=== PATIENT | female | born 1985 | race Caucasian/White ===

== ENCOUNTER → 2019-04-09 | Outpatient (CLI) | payer OTHER | END | disposition home or self-care (01) | LOC: LAB EV 12:01 → LAB SHORT 12:01 | DX: J02.9 Acute pharyngitis, unspecified (principal) | CPT/HCPCS: 87081 ==

== ENCOUNTER 2019-09-12 08:02 | Day surgery (SDC) | payer OTHER ==
[~2019-09-12] VITALS: Ht 160 cm; Wt 104.3 kg
[2019-09-12] MEDS ORDERED: DULO60 PO (08:26)
[2019-09-12] MEDS ORDERED: Norflex100 MG PO (08:27)
[2019-09-12] MEDS ORDERED: DIVA500EC PO (08:27)
[2019-09-12] MEDS ORDERED: AMIT10 PO (08:28)
--- NOTE | 2019-09-12 08:52 | NUR ---
Ambulatory in Day Surgery. Surgical site prepped with 2% Chlorhexidine cloth wipe. History, Chart, Medications and Allergies reviewed before start of procedure. Lungs clear T/O to Auscultation. Patient confirms NPO status and agrees with scheduled surgery. Pre-Op teaching done. Pt verbalizes understanding. Patient reports completing Chlorhexadine shower X2 prior to admission to hospital.
--- NOTE | 2019-09-12 09:57 | NUR ---
09/12/19 0957 Renato Glover [place] CATH PLACED PER DR. MITCHELL AT BEGINING OF PROCEDURE.
--- NOTE | 2019-09-12 12:55 | NUR ---
POST OP S/P LAVH. POST OP VSS AND IN PROGRESS. LAP SITES TO ABD ARE CDI. KPAD TO ABD FOR COMFORT. PT REPORTS ABD PAIN OF 3/10 AND DENIES NEED FOR PAIN MEDICATIONS. SLOWLY MANUELA CLEAR LIQS. IVF INFUSING PER ORDERS. [place] PATENT AND DRAINING. ARMAND PAD WITH SCANT VAGINAL BLEEDING. ENCOURAGING TO DEEP BREATHE. ORIENTED TO CALL LIGHT. CALL LIGHT WITHIN REACH.
--- NOTE | 2019-09-12 16:43 | NUR ---
SHIFT SUMMARY NO ACUTE CHANGES POST OP. PT DID GET NAUSEATED X1 AFTER SHE REPORTS EATING TOO FAST AND AFTER GETTING UP IN CHAIR. ZOFRAN GIVEN PER ORDERS AND PT DENIES NAUSEA SINCE. REG DIET FOR DINNER--ENCOURAGED PT TO EAT SLOW. IVF INFUSING PER ORDERS. KPAD TO ABD FOR COMFORT. 2 OXICODONE + TYLENOL + TORADOL FOR PAIN. SCANT VAGINAL DRAINAGE ON ARMAND PAD. LAP SITES TO ABD ARE CDI. [place] PATENT WITH CLEAR YELLOW URINE. PT USES CALL LIGHT APPROPRIATELY.
[2019-09-13 04:26] LABS: BASOPHILS ABSOLUTE AUTO 0.02 K/mm3 (0.00-0.23); BASOPHILS PERCENT AUTO 0 % (0-2); EOSINOPHILS ABSOLUTE AUTO 0.03 K/mm3 (0.00-0.68); EOSINOPHILS PERCENT AUTO 0 % (0-6); Hematocrit 30.9 % (33.0-51.0); Hemoglobin 9.8 g/dL (11.5-16.0); IMMATURE GRAN ABSOLUTE AUTO 0.04 K/mm3 (0.00-0.10); IMMATURE GRAN PERCENT AUTO 0 % (0-1); LYMPHOCYTES ABSOLUTE AUTO 4.34 K/mm3 (0.84-5.20); LYMPHOCYTES PERCENT AUTO 40 % (21-46); MONOCYTES ABSOLUTE AUTO 0.59 K/mm3 (0.16-1.47); MONOCYTES PERCENT AUTO 5 % (4-13); Mean Corpuscular HGB 26.3 pg (26.0-34.0); Mean Corpuscular HGB Conc 31.7 g/dL (31.5-36.5); Mean Corpuscular Volume 83 fL (80-100); Mean Platelet Volume 9.2 fL (9.1-12.4); NEUTROPHILS ABSOLUTE AUTO 5.81 K/mm3 (1.96-9.15); NEUTROPHILS PERCENT AUTO 54 % (41-73); Platelet Count 175 K/mm3 (150-400); RDW Coefficient Variation 13.6 % (11.7-14.2); RDW Standard Deviation 41.1 fL (35.1-46.3); Red Blood Cell Count 3.72 M/mm3 (3.80-5.20); White Blood Cell Count 10.83 K/mm3 (4.00-11.30)
--- NOTE | 2019-09-13 05:10 | NUR ---
SHIFT SUMMARY: BRISA IS A&OX4. VSS, NO ACUTE EVENTS OVERNIGHT, ORA. SHE WAS CONCERNED D/T HER SYSTOLIC BP DROPPING BELOW 120, REASSURED AND EDUCATED. DB&C ENCOURAGED, INCENTIVE SPIROMETER PROVIDED. SHE IS INDEPENDENT IN THE ROOM AND AMBULATING IN THE HALLWAY. SHE REPORTS ADEQUATE PAIN CONTROL WITH 5 MG OXYCODONE, APAP AND TORADOL. ABDOMEN SOFT, SCANT DRAINAGE ON ARMAND PAD. EXCELLENT URINARY OUTPUT THROUGH [place] CATHETER; REMOVED THIS MORNING. LAP SITES X 3 ON ABDOMEN C/D&I. TOLERATING PO INTAKE WELL. SHE IS ABLE TO MAKE HER NEEDS KNOWN. SHE IS LYING IN BED WITH HER CALL LIGHT IN REACH. WILL REPORT TO DAY SHIFT RN.
[2019-09-13] MEDS ORDERED: IBUP800 PO (08:57)
[2019-09-13] MEDS ORDERED: OXYC5 PO (08:58)
--- NOTE | 2019-09-13 09:12 | NUR ---
DISCHARGE PT EDUCATED ON AND RECEIVED PRINTED DISCHARGE INSTRUCTIONS AND VERB AN UNDERSTANDING. HARD RX FOR OXYCODONE AND IBUPROFEN GIVEN TO PT. IV DC'D. PT LEFT WITH ALL PERSONAL BELONGINGS AND SPOUSE AT SIDE.
== END 2019-09-13 09:13 | disposition home or self-care (01) ==
LOC: ORSCMMR 08:02 → ORD 09:30 → SURS 12:15 → ORSCMMR 09-13 09:13
PROVIDERS: Obstetrics & Gynecology
PROC: 0UT9FZZ Resection of Uterus, Via Natural or Artificial Opening With Percutaneous Endoscopic Assistance (ICD-10-PCS; principal; 2019-09-12 09:30)
PROC: 0UT7FZZ Resection of Bilateral Fallopian Tubes, Via Natural or Artificial Opening With Percutaneous Endoscopic Assistance (ICD-10-PCS; principal; 2019-09-12 09:30)
PROC: 0TSD0ZZ Reposition Urethra, Open Approach (ICD-10-PCS; principal; 2019-09-12 09:30)
DX: N80.3 Endometriosis of pelvic peritoneum (principal); N39.3 Stress incontinence (female) (male)
CPT/HCPCS: 36415; 85025; 88307; C1771; J0171; J0690; J1100; J1885; J2250; J2405; J2704; J2710; J3010; J7120

== ENCOUNTER → 2022-06-09 | Outpatient (CLI) | payer OTHER ==
[~2022-06-09] MED LIST: AMIT10 PO; DIVA500EC PO; DULO60 PO; IBUP800 PO; Norflex100 MG PO; OXYC5 PO
[2022-06-10 09:50] LABS: BASOPHILS PERCENT AUTO 1 % (0-2); EOSINOPHILS ABSOLUTE AUTO 0.28 K/mm3 (0.00-0.68); EOSINOPHILS PERCENT AUTO 3 % (0-6); Hematocrit 43.3 % (33.0-51.0); Hemoglobin 13.9 g/dL (11.5-16.0); IMMATURE GRAN ABSOLUTE AUTO 0.02 K/mm3 (0.00-0.10); IMMATURE GRAN PERCENT AUTO 0 % (0-1); LYMPHOCYTES ABSOLUTE AUTO 3.94 K/mm3 (0.84-5.20); LYMPHOCYTES PERCENT AUTO 37 % (21-46); MONOCYTES PERCENT AUTO 5 % (4-13); Mean Corpuscular HGB 28.4 pg (26.0-34.0); Mean Corpuscular HGB Conc 32.1 g/dL (31.5-36.5); Mean Corpuscular Volume 88 fL (80-100); Mean Platelet Volume 9.4 fL (9.1-12.4); NEUTROPHILS ABSOLUTE AUTO 5.95 K/mm3 (1.96-9.15); NEUTROPHILS PERCENT AUTO 55 % (41-73); Platelet Count 271 K/mm3 (150-400); RDW Coefficient Variation 13.1 % (11.7-14.2); RDW Standard Deviation 42.5 fL (35.1-46.3); White Blood Cell Count 10.79 K/mm3 (4.00-11.30)
== END | disposition home or self-care (01) ==
LOC: LAB SHORT 15:23 → LAB 15:23
PROVIDERS: Family Medicine
DX: R46.3 Overactivity (principal)
CPT/HCPCS: 85025

== ENCOUNTER → 2022-08-24 | Outpatient (CLI) | payer OTHER | END | disposition home or self-care (01) | LOC: LAB SHORT 16:33 | DX: N39.0 Urinary tract infection, site not specified (principal) | CPT/HCPCS: 87077; 87086; 87186 ==

== ENCOUNTER 2023-07-18 21:48 | Emergency (ER) | payer OTHER ==
[~2023-07-18] VITALS: Ht 160 cm; Wt 104.3 kg
[2023-07-18 22:21] LABS: BASOPHILS ABSOLUTE AUTO 0.07 K/mm3 (0.00-0.23); BASOPHILS PERCENT AUTO 1 % (0-2); EOSINOPHILS ABSOLUTE AUTO 0.65 K/mm3 (0.00-0.68); EOSINOPHILS PERCENT AUTO 7 % (0-6); Hematocrit 38.4 % (33.0-51.0); Hemoglobin 12.4 g/dL (11.5-16.0); IMMATURE GRAN ABSOLUTE AUTO 0.03 K/mm3 (0.00-0.10); IMMATURE GRAN PERCENT AUTO 0 % (0-1); LYMPHOCYTES ABSOLUTE AUTO 3.32 K/mm3 (0.84-5.20); LYMPHOCYTES PERCENT AUTO 38 % (21-46); MONOCYTES ABSOLUTE AUTO 0.69 K/mm3 (0.16-1.47); MONOCYTES PERCENT AUTO 8 % (4-13); Mean Corpuscular HGB 26.9 pg (26.0-34.0); Mean Corpuscular HGB Conc 32.3 g/dL (31.5-36.5); Mean Corpuscular Volume 83 fL (80-100); NEUTROPHILS ABSOLUTE AUTO 4.01 K/mm3 (1.96-9.15); NEUTROPHILS PERCENT AUTO 46 % (41-73); Platelet Count 216 K/mm3 (150-400); RDW Coefficient Variation 13.4 % (11.7-14.2); RDW Standard Deviation 39.8 fL (35.1-46.3); Red Blood Cell Count 4.61 M/mm3 (3.80-5.20); White Blood Cell Count 8.77 K/mm3 (4.00-11.30)
[2023-07-18 22:44] LABS: Albumin, Blood 3.3 g/dL (3.4-5.0); Albumin/Globulin Ratio 0.8 (0.8-1.8); Bilirubin, Total 0.2 mg/dL (0.1-1.0); Bun/Creatinine Ratio 14.3 (12.0-20.0); Creatinine, Blood 0.7 mg/dL (0.40-1.00); Globulin, Blood 4.1 g/dL (2.2-4.0); Potassium, Blood 3.9 mmol/L (3.5-5.5); Total Protein, Blood 7.4 g/dL (6.4-8.2)
[2023-07-19 01:30] VITALS: BP 130/93
[2023-07-19] MEDS ORDERED: DELTASONE20 MG PO (02:03)
[2023-07-19] MEDS ORDERED: LORA10ER PO (02:03)
[2023-07-19] MEDS ORDERED: PredniSONE 20 MG Tab PO ONE (02:05)
== END 2023-07-19 02:10 | disposition home or self-care (01) ==
LOC: ER 21:48
PROVIDERS: Physician Assistant
DX: J20.9 Acute bronchitis, unspecified (principal); J02.9 Acute pharyngitis, unspecified; Z68.41 Body mass index [BMI] 40.0-44.9, adult; Z88.2 Allergy status to sulfonamides; Z88.8 Allergy status to other drugs, medicaments and biological substances
CPT/HCPCS: 71046; 80053; 83880; 84484; 85025; 87081; 87430; 93005; 93010; 99285-25; J7512

== ENCOUNTER → 2024-09-29 | Outpatient (CLI) | payer OTHER ==
[~2024-09-29] MED LIST changes: +DELTASONE20 MG PO; +LORA10ER PO
[2024-09-29 15:13] LABS: Source, Urine Voided
[2024-09-29 15:21] LABS: Bacterial Vaginosis PCR Negative (NEGATIVE); Candida Group, PCR NOT DETECTED (NOT DETECT); Candida glabrata-krusei, PCR NOT DETECTED (NOT DETECT)
[2024-09-29 16:16] LABS: Bilirubin, Urine Neg (Neg); Color, Urine Yellow (P-Yellow); Glucose Qualitative, Urine Neg (Neg); Ketones, Urine Neg (Neg); Leukocyte Esterase, Urine 2+ (Neg); Protein, Urine 1+ (Neg); Specific Gravity, Urine 1.020 (1.003-1.022); Urobilinogen, Urine NORM (Normal)
== END | disposition home or self-care (01) ==
LOC: LAB SHORT 12:59 → LAB 12:59
PROVIDERS: Obstetrics & Gynecology
DX: N39.46 Mixed incontinence (principal); N89.8 Other specified noninflammatory disorders of vagina
CPT/HCPCS: 81001; 81515; 87086